=== PATIENT | male | born 1955 | race Caucasian/White ===

== ENCOUNTER 2023-04-08 10:18 | Outpatient (CLI) | payer MEDICARE ==
[2023-04-08 11:45] LABS: Hemoglobin 13.2 g/dL (13.5-17.5); Mean Corpuscular HGB CONC 33.2 g/dL (32.0-36.0); Mean Corpuscular Hemoglobin 30.3 pg (27.0-33.0); Mean Corpuscular Volume 91.5 fl (81.2-95.1); Mean Platelet Volume 9.7 fl (7.4-10.4); Platelet Count 314 10x3/uL (150-450); RBC Distribution Width 12.5 % (11.5-14.5); Red Blood Cell (RBC) Count 4.35 10x6/uL (4.32-5.72); White Blood Cell (WBC) Count 7.7 10x3/uL (3.5-10.5)
[2023-04-08 12:12] LABS: Anion Gap 14 mmol/L (10-20); BUN (Urea Nitrogen) 14 mg/dL (8.4-25.7); Calc. Creatinine Clearance 0 mL/min (70-130); Calcium 9.2 mg/dL (7.8-10.44); Carbon Dioxide 23 mmol/L (23-31); Chloride 108 mmol/L (98-107); Estimated GFR 95; Glucose 92 mg/dL (80-115); Potassium 4.3 mmol/L (3.5-5.1); Sodium 141 mmol/L (136-145)
== END 2023-04-08 10:19 | disposition home or self-care (01) ==
LOC: LABBT 10:18
PROVIDERS: ATTEND Neurological Surgery
DX: Z01.818 Encounter for other preprocedural examination (principal); M47.12 Other spondylosis with myelopathy, cervical region
CPT/HCPCS: 80048; 85027; 93005; 93010

== ENCOUNTER 2023-04-08 10:30 | Inpatient (IN) | payer MEDICARE ==
[2023-04-08 10:53] VITALS: BMI 26.6
[2023-04-12] MEDS ORDERED: Scopolamine 1.5 mg/72 hour Patch ONE (08:57)
[2023-04-12] MEDS ORDERED: Sodium Chloride 0.9% 100 ML ONE (09:20)
[2023-04-12] MEDS ORDERED: CEFAZOLIN 2 GM VIAL ONE (09:20)
[2023-04-12] MEDS ORDERED: Midazolam HCl 2 mg/2 ml Vial ONE (09:23)
[2023-04-12] MEDS ORDERED: fentaNYL PF 100 MCG/2 ML SYRINGE ONE (09:23)
[2023-04-12] MEDS ORDERED: SUGAMMADEX SODIUM 200 MG/2 ML VIAL ONE (09:23)
[2023-04-12] MEDS ORDERED: Lidocaine 1% PF 5 ML VIAL ONE (09:46)
[2023-04-12] MEDS ORDERED: ePHEDrine Sulfate 50 MG/10 ML VIAL ONE (09:46)
[2023-04-12] MEDS ORDERED: diphenhydrAMINE 50 MG/ML VIAL ONE (09:46)
[2023-04-12] MEDS ORDERED: Rocuronium Bromide 10 MG/ML (10ML VIAL) ONE (09:46)
[2023-04-12] MEDS ORDERED: PROPOFOL 200 MG/20 ML VIAL ONE (09:46)
[2023-04-12] MEDS ORDERED: Ondansetron PF 4 MG/2 ML Vial ONE (09:46)
[2023-04-12] MEDS ORDERED: Dexamethasone 20 MG/5 ML VIAL ONE (09:46)
[2023-04-12] MEDS ORDERED: Mag-Al 1200 mg/1200 mg/30 ML UDCUP PO PRN (11:26)
[2023-04-12] MEDS ORDERED: Milk Of Magnesia 30 ML UDCUP PO PRN (11:26)
[2023-04-12] MEDS ORDERED: Cyclobenzaprine 10 MG TAB PO PRN (11:26)
[2023-04-12] MEDS ORDERED: Promethazine 25 MG TAB PO PRN (11:26)
[2023-04-12] MEDS ORDERED: Promethazine HCl 25 MG/ML VIAL IM PRN (11:26)
[2023-04-12] MEDS ORDERED: Morphine 2 MG/ML VIAL SLOW IVP PRN (11:26)
[2023-04-12] MEDS ORDERED: Acetaminophen 325 MG TAB PO PRN (11:26)
[2023-04-12] MEDS ORDERED: Ondansetron PF 4 MG/2 ML Vial IVP PRN (11:26)
[2023-04-12] MEDS ORDERED: HYDROcodone/Acetaminophen 10/325 mg Tablet PO PRN (11:26)
[2023-04-12] MEDS ORDERED: fentaNYL 50 mcg/mL 1 mL Vial ONE ×3 (12:01→13:21)
[2023-04-12] MEDS: HYDROcodone/Acetaminophen 10/325 mg Tablet PO PRN (14:38)
[2023-04-12] MEDS: Sodium Chloride 0.9% 1,000 ML IV SCH (14:40)
[2023-04-12] MEDS: CEFAZOLIN 2 GM in Sodium Chloride 0.9% 100 ML IVPB SCH (16:00)
[2023-04-13] MEDS: CEFAZOLIN 2 GM in Sodium Chloride 0.9% 100 ML IVPB SCH ×2 (02:10→08:16)
[2023-04-13] MEDS: Sodium Chloride 0.9% 1,000 ML IV SCH (02:10)
[2023-04-13] MEDS: HYDROcodone/Acetaminophen 10/325 mg Tablet PO PRN (05:54)
[2023-04-13] MEDS ORDERED: Tamsulosin HCl 0.4 MG CAP PO SCH (06:00)
[2023-04-13] MEDS ORDERED: Dexamethasone 4 mg/ml Vial SLOW IVP SCH (06:15)
[2023-04-13 08:26] VITALS: BP 120/71; TEMP 98
== END 2023-04-13 09:40 | disposition home or self-care (01) | DRG 472 ==
LOC: SURG A 04-12 07:30
PROVIDERS: ADMIT Neurological Surgery; ATTEND Neurological Surgery
PROC: 0RG2070 Fusion of 2 or more Cervical Vertebral Joints with Autologous Tissue Substitute, Anterior Approach, Anterior Column, Open Approach (ICD-10-PCS; principal; 2023-04-12)
PROC: 0RB30ZZ Excision of Cervical Vertebral Disc, Open Approach (ICD-10-PCS; 2023-04-12)
DX: M48.02 Spinal stenosis, cervical region (principal); M47.12 Other spondylosis with myelopathy, cervical region; M25.78 Osteophyte, vertebrae; Z88.5 Allergy status to narcotic agent; Z87.891 Personal history of nicotine dependence; G43.909 Migraine, unspecified, not intractable, without status migrainosus; N20.0 Calculus of kidney
CPT/HCPCS: C1713; J1100; J1200; J2250; J2405; J2704; J3010; J3490; J7050